=== PATIENT | male | born 1965 | race Two or more races ===

== ENCOUNTER 2021-02-22 07:45 | Inpatient (IN) | payer MEDICAID, OTHER ==
[~2021-02-22] VITALS: Ht 167.6 cm; Wt 99.8 kg
[2021-02-22] MEDS ORDERED: DEXTROSE (50%) 50ML SYRG IV PRN ×2 (08:00→15:45)
[2021-02-22] MEDS ORDERED: INSULIN LANTUS (GLARGINE) 1 /0.01ml (100units/ml) SC ONE (08:00)
[2021-02-22] MEDS ORDERED: InsuLIN R (HUMAN) 100 UNITS in SODIUM CHL 0.9% 99 ML IV SCH (08:00)
[2021-02-22] MEDS ORDERED: LORazepam 2MG/ML-1ML VIAL ONE (08:14)
[2021-02-22] MEDS ORDERED: LORazepam 2MG/ML-1ML VIAL IV ONE (08:30)
[2021-02-22] MEDS ORDERED: LORazepam 2MG/ML-1ML VIAL IM ONE (08:30)
[2021-02-22 09:17] LABS: Basophils # (auto) 0.1 10 ^3/uL (0-0.2); Basophils % (auto) 0.7 % (0.0-2.0); Eosinophils # (auto) 0.1 10 ^3/uL (0-0.8); Eosinophils % (auto) 0.9 % (0.0-7.0); Hematocrit 42.5 % (41.0-53.0); Hemoglobin 13.7 g/dL (13.5-17.5); Lymphocytes # (auto) 1.9 10 ^3/uL (0.4-5.4); Lymphocytes % (auto) 15.8 % (10.0-50.0); Mean Corpuscular Hemoglobin 31.9 pg (28.0-32.0); Mean Corpuscular Hgb Conc. 32.3 g/dL (32.0-36.0); Monocytes # (auto) 0.4 10 ^3/uL (0-1.3); Monocytes % (auto) 3.4 % (0.0-12.0); Neutrophils # (auto) 9.7 10 ^3/uL (1.6-8.6); Neutrophils % (auto) 79.2 % (37.0-80.0); Red Cell Distribution Width 12.5 % (11.8-14.3); White Blood Cell 12.2 10^3/uL (4.4-10.8)
[2021-02-22 09:35] LABS: Calcium 9.1 mg/dL (8.5-10.1); Magnesium 2.8 mg/dL (1.6-2.6); Phosphorus 3.8 mg/dL (2.5-4.90)
[2021-02-22] MEDS: SODIUM CHLORIDE 0.9% 1,000 ML IV SCH ×2 (10:12→10:15)
[2021-02-22] MEDS: ACCU-CHEK COMFORT CURVE STRIP VI SCH ×7 (10:14→23:38)
[2021-02-22] MEDS ORDERED: PIPERACILLIN-TAZOB 3.375GM 100 ML IV ONE (10:15)
[2021-02-22 10:30] LABS: Urine Bacteria NONE SEEN /hpf (None Seen); Urine Blood 2+ /uL (Negative); Urine Specific Gravity 1.023 (1.001-1.035); Urine WBC 1 /hpf (0 - 3)
[2021-02-22] MEDS ORDERED: MORPHINE SULFATE INJECTION 2 MG/ML SYRG IV PRN (11:30)
[2021-02-22] MEDS ORDERED: NITROGLYCERIN 0.4 MG SL TAB SL PRN (11:30)
[2021-02-22] MEDS ORDERED: LORazepam 2MG/ML-1ML VIAL IV PRN (11:30)
[2021-02-22] MEDS ORDERED: SODIUM CHLORIDE 0.9% 1,000 ML IV SCH ×2 (12:00→14:00)
[2021-02-22 12:29] LABS: Amphetamine Screen, Urine NEGATIVE (NEGATIVE); Barbiturate Scree,Urine NEGATIVE (NEGATIVE); Benzodiazephine Screen, Urine NEGATIVE (NEGATIVE); Cannabinoid Screen, Urine NEGATIVE (NEGATIVE); Cocaine Screen, Urine NEGATIVE (NEGATIVE); Opiate Scree,Urine NEGATIVE (NEGATIVE); Phencyclidine Screen, Urine NEGATIVE (NEGATIVE)
[2021-02-22] MEDS: InsuLIN REG 1unit/0.01ml Soln (100units/ml) SC SCH ×3 (16:00→23:37)
[2021-02-22] MEDS ORDERED: chlordiazePOXIDE HCL 25 MG CAP PO PRN (18:45)
[2021-02-22 18:54] LABS: BUN/Creatinine Ratio 14.4; Calcium 8.3 mg/dL (8.5-10.1)
[2021-02-22] MEDS: FOLIC ACID 1 MG, MULTIPLE VITAMIN 10 ML, THIAMINE INJ 100 MG in SODIUM CHLORIDE 0.9% 1,... INJ SCH (20:22)
[2021-02-22 22:00] VITALS: BP 190/90
[2021-02-22] MEDS ORDERED: hydrALAZINE HCL 20 MG/ML VL IV ONE (22:45)
[2021-02-23 00:22] VITALS: BP 195/97
[2021-02-23] MEDS ORDERED: SIMV-8 PO (02:26)
[2021-02-23] MEDS ORDERED: GLIP10TA9 PO (02:26)
[2021-02-23] MEDS ORDERED: METF-372 PO (02:26)
[2021-02-23] MEDS ORDERED: HYDR12.56 PO (02:26)
[2021-02-23] MEDS ORDERED: ALOG1TAB2 PO (02:26)
[2021-02-23] MEDS ORDERED: LISI-716 PO (02:26)
[2021-02-23 05:00] VITALS: BP 129/64
[2021-02-23] MEDS: ACCU-CHEK COMFORT CURVE STRIP VI SCH ×5 (05:21→20:09)
[2021-02-23] MEDS: InsuLIN REG 1unit/0.01ml Soln (100units/ml) SC SCH ×6 (05:33→21:15)
[2021-02-23 08:33] LABS: Basophils # (auto) 0.1 10 ^3/uL (0-0.2); Basophils % (auto) 0.6 % (0.0-2.0); Eosinophils # (auto) 0.1 10 ^3/uL (0-0.8); Eosinophils % (auto) 0.6 % (0.0-7.0); Hematocrit 39.5 % (41.0-53.0); Hemoglobin 13.8 g/dL (13.5-17.5); Lymphocytes # (auto) 1.7 10 ^3/uL (0.4-5.4); Lymphocytes % (auto) 16.6 % (10.0-50.0); Mean Corpuscular Hemoglobin 33.3 pg (28.0-32.0); Mean Corpuscular Volume 95.3 fL (80.0-100.0); Monocytes # (auto) 0.7 10 ^3/uL (0-1.3); Monocytes % (auto) 7.2 % (0.0-12.0); Neutrophils # (auto) 7.4 10 ^3/uL (1.6-8.6); Nucleated Red Blood Cells % 0.1 %; Red Blood Cells 4.14 10^6/uL (4.5-5.90); Red Cell Distribution Width 12.5 % (11.8-14.3); White Blood Cell 9.9 10^3/uL (4.4-10.8)
[2021-02-23 08:48] LABS: Albumin 2.6 g/dL (3.4-5.0); Calcium 8.2 mg/dL (8.5-10.1); Potassium 3.5 mmol/L (3.5-5.1)
[2021-02-23 08:54] LABS: Bilirubin, Total 0.7 mg/dL (0.2-1.0); Magnesium 2.8 mg/dL (1.6-2.6); Phosphorus 2.3 mg/dL (2.5-4.90); Total Protein 6.2 g/dL (6.4-8.2)
[2021-02-23] MEDS ORDERED: INSULIN LANTUS (GLARGINE) 1 /0.01ml (100units/ml) SC SCH (10:00)
[2021-02-23 13:00] VITALS: BP 146/80
[2021-02-23] MEDS: SODIUM CHLORIDE 0.9% 1,000 ML IV SCH (13:04)
[2021-02-23] MEDS: FOLIC ACID 1 MG, MULTIPLE VITAMIN 10 ML, THIAMINE INJ 100 MG in SODIUM CHLORIDE 0.9% 1,... INJ SCH (13:07)
[2021-02-23] MEDS: cloNIDine HCL 0.1 MG TAB PO PRN ×2 (16:21→21:41)
[2021-02-23 16:39] VITALS: BP 180/101
[2021-02-23 17:21] VITALS: BP 150/95
[2021-02-23 22:00] VITALS: BP 197/89
[2021-02-24 05:00] VITALS: BP 150/92
[2021-02-24] MEDS: ACCU-CHEK COMFORT CURVE STRIP VI SCH ×4 (05:29→12:13)
[2021-02-24] MEDS: InsuLIN REG 1unit/0.01ml Soln (100units/ml) SC SCH ×4 (05:31→12:14)
[2021-02-24] MEDS: SODIUM CHLORIDE 0.9% 1,000 ML IV SCH ×2 (05:32→13:40)
[2021-02-24 07:12] LABS: Basophils # (auto) 0.1 10 ^3/uL (0-0.2); Basophils % (auto) 1.1 % (0.0-2.0); Eosinophils # (auto) 0.2 10 ^3/uL (0-0.8); Eosinophils % (auto) 3.4 % (0.0-7.0); Hematocrit 39.4 % (41.0-53.0); Hemoglobin 13.1 g/dL (13.5-17.5); Lymphocytes # (auto) 1.9 10 ^3/uL (0.4-5.4); Lymphocytes % (auto) 28.9 % (10.0-50.0); Mean Corpuscular Hemoglobin 32.8 pg (28.0-32.0); Mean Corpuscular Hgb Conc. 33.3 g/dL (32.0-36.0); Mean Corpuscular Volume 98.6 fL (80.0-100.0); Monocytes # (auto) 0.5 10 ^3/uL (0-1.3); Monocytes % (auto) 7.3 % (0.0-12.0); Neutrophils % (auto) 59.3 % (37.0-80.0); Nucleated Red Blood Cells % 0.1 %; Red Cell Distribution Width 12.8 % (11.8-14.3); White Blood Cell 6.7 10^3/uL (4.4-10.8)
[2021-02-24 08:14] LABS: Albumin 2.2 g/dL (3.4-5.0); Calcium 7.7 mg/dL (8.5-10.1); Potassium 3.3 mmol/L (3.5-5.1)
[2021-02-24 08:18] LABS: BUN/Creatinine Ratio 13.9; Bilirubin, Total 0.9 mg/dL (0.2-1.0); Total Protein 5.6 g/dL (6.4-8.2)
[2021-02-24 09:00] VITALS: BP 160/85
[2021-02-24] MEDS ORDERED: POTASSIUM CHL 10 Meq TABLET PO ONE (10:15)
[2021-02-24] MEDS ORDERED: LISINOPRIL 10 MG TAB PO ONE (10:15)
[2021-02-24 12:59] VITALS: BP 140/82
== END 2021-02-24 14:26 | disposition home or self-care (01) | DRG 53 ==
LOC: ER 07:45 → EDBD 07:45 → ER 08:22 → OVERFLOW 11:23 → TELE-CENTR 21:20
PROVIDERS: ADMIT Nurse Practitioner Acute Care; ATTEND Internal Medicine
PROC: 02HV33Z Insertion of Infusion Device into Superior Vena Cava, Percutaneous Approach (ICD-10-PCS; principal; 2021-02-22)
DX: G40.909 Epilepsy, unspecified, not intractable, without status epilepticus (principal); N17.0 Acute kidney failure with tubular necrosis; G93.41 Metabolic encephalopathy; E11.10 Type 2 diabetes mellitus with ketoacidosis without coma; E66.9 Obesity, unspecified; N18.31 Chronic kidney disease, stage 3a; Y90.2 Blood alcohol level of 40-59 mg/100 ml; E11.22 Type 2 diabetes mellitus with diabetic chronic kidney disease; Z20.822 Contact with and (suspected) exposure to COVID-19; E78.5 Hyperlipidemia, unspecified; E11.42 Type 2 diabetes mellitus with diabetic polyneuropathy; I12.9 Hypertensive chronic kidney disease with stage 1 through stage 4 chronic kidney disease, or unspecified chronic kidney disease; F10.10 Alcohol abuse, uncomplicated; R65.10 Systemic inflammatory response syndrome (SIRS) of non-infectious origin without acute organ dysfunction; Z83.3 Family history of diabetes mellitus; Z91.14 Patient's other noncompliance with medication regimen; Z68.35 Body mass index [BMI] 35.0-35.9, adult
CPT/HCPCS: 36415; 36569; 51702; 70450; 70551; 71045; 80048; 80053; 80307; 81001; 82010; 82962; 83735; 83930; 84100; 85025; 87426; 87493; 95819; 96361; 96365; 96366; 96367; 96368; 96372; 99291; G0378; J1815; J2543; J7060

== ENCOUNTER 2024-07-18 21:46 | Inpatient (IN) | payer MEDICAID ==
[~2024-07-18] VITALS: Ht 170.2 cm; Wt 77.1 kg
[~2024-07-18 21:46] MED LIST: ALOG1TAB2 PO; GLIP10TA9 PO; HYDR12.59 PO; LISI10TA34 PO; METF-372 PO; SIMV20TA20 PO
[2024-07-18] MEDS: LORazepam 2MG/ML-1ML VIAL ONE (21:54)
--- NOTE | 2024-07-18 22:05 | ED.PDOC ---
HPI (NEURO) HPI Comments 59 year old male brought in by EMS presents to the ED with a chief complaint of seizure onset today. Per EMS, patient experienced a seizure today, family states when patient's glucose is elevated he experiences seizure. Patient has a PMHx HTN, DM, HLD and is not complaint with his medication, is not prescribed any medication for seizures. EMS states, upon arrival patient experienced second tonic clonic seizure and is currently post-ictal. Blood glucose read high two separate times. Chief Complaint: Seizure Time Seen by MD: 21:50 Primary Care Provider: MARGO Casillas Notes: Medications, Allergies Information Source: Patient, Emergency Med Personnel, Spouse Mode of Arrival: EMS Severity: Moderate Timing: Hours Duration: Since onset Seizure Quality: Tonic-clonic Seizure Location: Generalized Onset: At rest Circumstances: Spontaneous Before: Normal During: Awake Past Medical History PAST MEDICAL HISTORY: DM, High Lipids, HTN Past Medical History (Other): Seizure Family History Family History: Reviewed,noncontributory to illness Social History Smoker: Non-Smoker Alcohol: Denies ETOH Use Drugs: Denies Drug Use Lives In: Home Constitutional: denies: chills, diaphoresis, fatigue, fever, malaise, sweats, weakness, others EENTM: denies: blurred vision, double vision, ear bleeding, ear discharge, ear drainage, ear pain, ear ringing, eye pain, eye redness, hearing loss, mouth pain, mouth swelling, nasal discharge, nose bleeding, nose congestion, nose pain, photophobia, tearing, throat pain, throat swelling, voice changes, others Respiratory: denies: cough, hemoptysis, orthopnea, SOB at rest, shortness of breath, SOB with excertion, stridor, wheezing, others Cardiovascular: denies: chest pain, dizzy spells, diaphoresis, Dyspnea on exertion, edema, irregular heart beat, left arm pain, lightheadedness, palpitations, PND, syncope, others Gastrointestinal: denies: abdomen distended, abdominal pain, blood streaked bowels, constipated, diarrhea, dysphagia, difficulty swallowing, hematemesis, melena, nausea, poor appetite, poor fluid intake, rectal bleeding, rectal pain, vomiting, others Genitourinary: denies: burning, dysuria, flank pain, frequency, hematuria, incontinence, penile discharge, penile sore, pain, testicle pain, testicle swelling, urgency, others Neurological: reports: seizure; denies: dizziness, fainting, headache, left sided numbness, left sided weakness, numbness, paresthesia, pre-existing deficit, right sided numbness, right sided weakness, speech problems, tingling, tremors, weakness, others Musculoskeletal: denies: back pain, gout, joint pain, joint swelling, muscle pain, muscle stiffness, neck pain, others Integumetry: denies: bruises, change in color, change in hair/nails, dryness, laceration, lesions, lumps, rash, wounds, others Allergic/Immunocompromised: denies: Difficulty Healing, Frequent Infections, Hives, Itching, others Hematologic/Lymphatic: denies: anemia, blood clots, easy bleeding, easy bruising, swollen glands, others Endocrine: denies: excessive hunger, excessive sweating, excessive thirst, excessive urination, flushing, intolerance to cold, intolerance to heat, unexplained weight gain, unexplained weight loss, others Psychiatric: denies: anxiety, bipolar disorder, depression, hopeless, panic disorder, schizophrenia, sleepless, suicidal, others All Other Systems: Reviewed and Negative Physical Exam General Appearance: Mild Distress HEENT: PERRL/EOMI, Other (Dry mucous membranes) Neck: Full Range of Motion, Non-Tender, Normal Inspection, Supple Respiratory: Lungs Clear, No Accessory Muscle Use, No Respiratory Distress, Normal Breath Sounds Cardiovascular: No Edema, No JVD, Tachycardia Breast Exam: Deferred Gastrointestinal: Non Tender, Soft Genitalia: Deferred Pelvic: Deferred Rectal: Deferred Extremities: Normal inspection, Normal range of motion, Non-tender, No pedal edema Neurologic: Alert (Postictal), Other (Moves all extremities. Follows some commands. No gross focal deficit.) Cerebellar Function: NOT DONE Reflexes: NOT DONE Skin: Dry, Normal Color, Warm Lymphatic: NOT DONE EKG EKG : Comments Sinus rhythm, rate 63, normal intervals, normal axis, nonspecific T changes. Was a procedure done? Was a procedure done?: No Differential Diagnosis (SZ) Seizure: Psychogenic Seizure, Alcohol Withdrawl, CVA/TIA, Mass Lesion, Encephalopathy, Epilepsy-Break Through, Epilepsy-Status CVA: DKA, Electrolyte Imbalance, SAH Headache: Epidural Hemorrhage, Intracerebral Hemorrhage, Subarachnoid Hemorrhage, Subdural Hemorrhage, Meningitis X-Ray, Labs, Meds, VS Vital Signs Date Time Temp Pulse Resp B/P (MAP) Pulse Ox O2 Delivery O2 Flow Rate FiO2 07/18/24 22:02 144 20 126/80 (95) 98 Lab Test 07/19/24 01:07 07/19/24 00:35 07/19/24 00:32 07/19/24 00:24 Range/Units Troponin I High Sensitivity 132 *H </=54 ng/L POC Glucose 528 *H 590 *H 70-106 mg/dl Lactic Acid Level 7.3 *H 0.4-2.0 mmol/L Test 07/18/24 23:25 07/18/24 22:30 07/18/24 22:19 07/18/24 22:17 Range/Units Troponin I High Sensitivity 26 12 </=54 ng/L White Blood Count 5.3 4.4-10.8 10^3/uL Red Blood Count 4.04 L 4.5-5.90 10^6/uL Hemoglobin 13.3 L 13.5-17.5 g/dL Hematocrit 39.3 L 41.0-53.0 % Mean Corpuscular Volume 97.2 80.0-100.0 fL Mean Corpuscular Hemoglobin 32.8 H 28.0-32.0 pg Mean Corpuscular Hemoglobin Concent 33.7 32.0-36.0 g/dL Red Cell Distribution Width 12.0 11.8-14.3 % Platelet Count 295 140-450 10^3/uL Mean Platelet Volume 8.4 6.9-10.8 fL Neutrophils (%) (Auto) 65.2 37.0-80.0 % Lymphocytes (%) (Auto) 28.0 10.0-50.0 % Monocytes (%) (Auto) 2.7 0.0-12.0 % Eosinophils (%) (Auto) 3.1 0.0-7.0 % Basophils (%) (Auto) 1.0 0.0-2.0 % Neutrophils # (Auto) 3.5 1.6-8.6 10 ^3/uL Lymphocytes # (Auto) 1.5 0.4-5.4 10 ^3/uL Monocytes # (Auto) 0.1 0-1.3 10 ^3/uL Eosinophils # (Auto) 0.2 0-0.8 10 ^3/uL Basophils # (Auto) 0.1 0-0.2 10 ^3/uL Nucleated Red Blood Cells 0.1 % Sodium Level 126 L 136-145 mmol/L Potassium Level 5.0 3.5-5.1 mmol/L Chloride Level 92 L 98-107 mmol/L Carbon Dioxide Level 15 L 20-31 mmol/L Anion Gap 19 H 5-15 Blood Urea Nitrogen 25 H 9-23 mg/dL Creatinine 1.90 H 0.700-1.30 mg/dL Glomerular Filtration Rate Calc 40 >90 mL/min BUN/Creatinine Ratio 13.2 10.0-20.0 Serum Glucose 865 *H 74-106 mg/dL Lactic Acid Level 12.5 *H 0.4-2.0 mmol/L Calcium Level 10.2 8.7-10.4 mg/dL Total Bilirubin 0.3 0.2-1.0 mg/dL Aspartate Amino Transferase (AST) 23 13-40 U/L Alanine Aminotransferase (ALT) 28 7-40 U/L Alkaline Phosphatase 117 H 46-116 U/L B-Type Natriuretic Peptide 38.09 0-100 pg/mL Total Protein 6.3 5.7-8.2 g/dL Albumin 3.9 3.2-4.8 g/dL Beta-Hydroxybutyric Acid 0.465 H < 0.4 mmol/L POC Glucose > 600 *H 70-106 mg/dl Blood Gas Specimen Type Arterial Blood Gas Sample Site Left radial Blood Gas Patient Temperature 37.0 Arterial Blood Date Drawn [id number] Arterial Blood pH 7.262 L 7.350-7.450 Arterial Blood Partial Pressure CO2 28.8 L 35.0-48.0 mmHg Arterial Blood Partial Pressure O2 124.9 H 83.0-108.0 mmHg Arterial Blood HCO3 12.7 L 21.0-28.0 mmol/L Arterial Blood Oxygen Saturation 98.0 94.0-98.0 % Arterial Blood Base Excess -12.8 L -2.0-3.0 mmol/L Arterial Blood Oxyhemoglobin 96.9 94.0-98.0 % Arterial Blood Carboxyhemoglobin 0.6 0.5-1.5 % Arterial Blood Methemoglobin 0.5 0.0-1.5 % Krystian Test Modified Blood Gas Total Hemoglobin 14.00 13.5-17.5 g/dL Blood Gas Liter Flow 2.00 Blood Gas Modality Nasal cannula FiO2 % 28.0 Current Medications Medications (Trade) Dose Ordered Sig/Mino Route Start Time Stop Time Status Last Admin Sodium Chloride 2,000 ml @ 1,000 mls/hr Q2H ONCE IV 07/18/24 22:15 07/19/24 00:14 DC 07/18/24 22:33 Levetiracetam 100 ml @ 400 mls/hr ONCE ONCE IV 07/18/24 22:15 07/18/24 22:29 DC 07/18/24 22:13 Insulin Human Regular (InsuLIN R) 10 units ONCE ONCE IV 07/18/24 22:15 07/18/24 22:16 DC 07/18/24 22:24 Insulin Human (Reg)/Sodium Chloride 100 ml @ 0.5 mls/hr Q24H IV 07/19/24 01:15 07/19/24 01:25 Diagnostic Test (Pha) (Accu-Chek Comfort Curve T) 1 strip Q90MIN 07/19/24 01:30 07/19/24 01:34 Insulin Glargine (Lantus) 15 units ONCE ONCE SC 07/19/24 01:15 07/19/24 01:16 DC 07/19/24 01:34 PROCEDURE(s): HWOCT - HEAD WITHOUT CONTRAST REASON: seizure ORDER NUMBER(s): [id number], ACCESSION NUMBER(s): [id number] EXAM: CT HEAD WITHOUT CONTRAST INDICATION: seizure TECHNIQUE: CT of the head without intravenous contrast. Radiation Dose : 1. Head: CT Dose: CTDI volume is 64 mGy. Dose-length product is 1251 mGy*cm The dose indicators for CT are the volume Computed Tomography (CT) Dose Index (CTDIvol) and the Dose Length Product (DLP), and are measured in units of mGy and mGy-cm, respectively. These indicators are not patient dose, but values generated from the CT scanner acquisition factors. The report includes radiation exposure data for exposures received during this examination. COMPARISON: HEAD WITHOUT CONTRAST on DOS: 02/22/21 FINDINGS: There is no evidence of acute intracranial hemorrhage, extra-axial collection, mass effect, midline shift, herniation or hydrocephalus. The ventricles, sulci and cisterns are age appropriate. The choi-white differentiation is intact. Patchy periventricular and subcortical white matter hypoattenuation is nonspecific but may be related to small vessel ischemic disease. Mucosal thickening of the bilateral maxillary sinuses. The surrounding soft tissues and osseous structures are unremarkable. IMPRESSION: 1. No acute intracranial abnormality. 2. Bilateral maxillary sinusitis. Radiation optimization: All CT scans at this facility use at least one of these dose optimization techniques: automated exposure control mA and/or kV adjustment per patient size (includes targeted exams where dose is matched to clinical indication) or iterative reconstruction. RING PHYSICIAN: JAMIL ONEAL MD PROCEDURE(s): CXRP - CHEST PORTABLE REASON: seizure hyperglycemia ORDER NUMBER(s): [id number], ACCESSION NUMBER(s): [id number] CHEST RADIOGRAPH Indication: seizure hyperglycemia Technique: Single frontal view of the chest was obtained COMPARISON: CHEST PORTABLE on DOS: 02/22/21, CXRP on DOS: 02/22/21 FINDINGS: Lines and Tubes: None Lungs: Clear Pleura: No effusion. No pneumothorax. Cardiomediastinal contours: Unremarkable Bones: Unremarkable IMPRESSION: 1. No acute disease. ATED BY: MALU BREWER MD DICTATED DATE/TIME: 07/18/242231 SIGNED BY: MALU BREWER MD SIGNED DATE/TIME: 07/18/242231 X-Ray, Labs, Meds, VS Comment 59-year-old male with a history of hypertension, diabetes, dyslipidemia and seizures presenting status post seizure with hyperglycemia. Patient had another seizure while on the ambulance [facility] shortly after arrival. Vitals remarkable for heart rate 144 Exam remarkable for postictal state, tachycardia Rhythm strip independently interpreted by me: Sinus tach, rate 140, no ectopy. CT head IMPRESSION: 1. No acute intracranial abnormality. 2. Bilateral maxillary sinusitis. Chest x-ray unremarkable CBC unremarkable, metabolic panel remarkable for sodium 126, chloride 92, CO2 15, BUN 25, creatinine 1.9, anion gap 19, glucose 865, beta hydroxybutyrate 0.465, lactate 12.5, troponin 132 Patient treated with the following in the ED: Ativan 2 mg IV, 2 L 0.9 normal saline IV bolus, regular insulin 10 units IV, started on insulin drip protocol, Keppra 1 g IV, aspirin 325 mg p.o. On re-evaluation, patient is somnolent, arousable, no focal neurologic deficit and no further seizure activity. Plan is to admit the patient for glucose control, troponin trend, Neurology and Cardiology evaluation. Time of 1ST Reevaluation: 22:20 Reevaluation 1ST: Unchanged Patient Education/Counseling: Diagnosis, Treatment, Prognosis Family Education/Counseling: Diagnosis, Treatment, Prognosis Additional Information The following tests were ordered, and results were reviewed by me:EKG, TROP -x3, UA, CBC, CMP, bnp, xy chest, LA W/REFLEX, BLOOD CULTURE, CT HEAD WITHOUT CONTRAST, BETA-HYDROXYBUTYRATE, ABG W/ CO-OC I reviewed and agreed with the following test results read by other providers: CT HEAD WITHOUT CONTRAST Additional Information was gathered from interviewing the following independent historians: EMS, I discussed treatment and results with medical personnel and: patient, Departure 1 Departure Time of Disposition: 02:17 Impression: Primary Impression: DKA (diabetic ketoacidosis) Qualified Codes: E13.10 - Other specified diabetes mellitus with ketoacidosis without coma Additional Impressions: Seizure Elevated troponin Disposition: ADMITTED INPATIENT Admit to: [facility] Condition: Serious Critical Care Note Critical Care Time?: Yes (45 min-critical care time only) Critical care comment: Critical care time including multiple bedside re-evaluations, review of lab and imaging studies, and discussion of the case with the admitting provider. Patient is high risk for neurologic and/or metabolic decompensation. Stability Stability form required: No Heart Score Heart Score: Heart Score Response (Comments) Value History N/A 0 EKG N/A 0 Age N/A 0 Risk Factors N/A 0 Troponin N/A 0 Total 0 I personally scribed for JAMIL ONEAL MD ([email or web address]) on 07/18/24 at 22:05. Electronically submitted by Lizzie Olivares ([email or web address]). I personally scribed for JAMIL ONEAL MD ([email or web address]) on 07/18/24 at 22:06. Electronically submitted by Lizzie Olivares ([email or web address]). I personally scribed for JAMIL ONEAL MD ([email or web address]) on 07/18/24 at 22:07. Electronically submitted by Lizzie Olivares ([email or web address]). I personally scribed for JAMIL ONEAL MD ([facility]) on 07/18/24 at 22:15. Electronically submitted by Lizzie Olivares ([email or web address]). I personally scribed for JAMIL ONEAL MD ([facility]) on 07/18/24 at 22:37. Electronically submitted by Lizzie Olivares ([email or web address]). JAMIL ONEAL MD Jul 18, 2024 22:05
[2024-07-18] MEDS: levETIRAcetam 1000 mg/100ml 100 ML IV ONE (22:13)
[2024-07-18 22:17] VITALS: PULSE 81; RESP 21; O2SAT 99
[2024-07-18 22:23] LABS: Base Excess -12.8 mmol/L (-2.0-3.0)
[2024-07-18] MEDS: InsuLIN REG 1unit/0.01ml Soln (100units/ml) IV ONE (22:24)
[2024-07-18] MEDS: SODIUM CHLORIDE 0.9% 2,000 ML IV ONE (22:33)
--- NOTE | 2024-07-18 22:34 | DVH ---
CHEST RADIOGRAPH Indication: seizure hyperglycemia Technique: Single frontal view of the chest was obtained COMPARISON: CHEST PORTABLE on DOS: 02/22/21, CXRP on DOS: 02/22/21 FINDINGS: Lines and Tubes: None Lungs: Clear Pleura: No effusion. No pneumothorax. Cardiomediastinal contours: Unremarkable Bones: Unremarkable IMPRESSION: 1. No acute disease.
[2024-07-18 22:46] LABS: Basophils # (auto) 0.1 10 ^3/uL (0-0.2); Eosinophils # (auto) 0.2 10 ^3/uL (0-0.8); Eosinophils % (auto) 3.1 % (0.0-7.0); Hematocrit 39.3 % (41.0-53.0); Hemoglobin 13.3 g/dL (13.5-17.5); Lymphocytes # (auto) 1.5 10 ^3/uL (0.4-5.4); Mean Corpuscular Hemoglobin 32.8 pg (28.0-32.0); Mean Corpuscular Hgb Conc. 33.7 g/dL (32.0-36.0); Mean Corpuscular Volume 97.2 fL (80.0-100.0); Monocytes # (auto) 0.1 10 ^3/uL (0-1.3); Monocytes % (auto) 2.7 % (0.0-12.0); Neutrophils # (auto) 3.5 10 ^3/uL (1.6-8.6); Neutrophils % (auto) 65.2 % (37.0-80.0); Nucleated Red Blood Cells % 0.1 %; Platelet Count (auto) 295 10^3/uL (140-450); Red Blood Cells 4.04 10^6/uL (4.5-5.90); White Blood Cell 5.3 10^3/uL (4.4-10.8)
[2024-07-18 23:01] LABS: Alanine Aminotransferase 28 U/L (7-40); Albumin 3.9 g/dL (3.2-4.8); Anion Gap 19 (5-15); Aspartate Aminotransferase 23 U/L (13-40); BUN/Creatinine Ratio 13.2 (10.0-20.0); Calcium 10.2 mg/dL (8.7-10.4)
[2024-07-18 23:02] LABS: Bilirubin, Total 0.3 mg/dL (0.2-1.0); Total Protein 6.3 g/dL (5.7-8.2)
[2024-07-18 23:22] LABS: Carbon Dioxide 15 mmol/L (20-31); Chloride 92 mmol/L (98-107); Sodium 126 mmol/L (136-145)
[2024-07-18 23:24] LABS: Alkaline Phosphatase 117 U/L (46-116); Blood Urea Nitrogen 25 mg/dL (9-23); Glucose 865 mg/dL (74-106); Lactic Acid w/Reflex 12.5 mmol/L (0.4-2.0)
[2024-07-19] MEDS ORDERED: DEXTROSE (50%) 50ML SYRG IV PRN ×5 (01:15→08:00)
--- NOTE | 2024-07-19 01:17 | DVH ---
EXAM: CT HEAD WITHOUT CONTRAST INDICATION: seizure TECHNIQUE: CT of the head without intravenous contrast. Radiation Dose : 1. Head: CT Dose: CTDI volume is 64 mGy. Dose-length product is 1251 mGy*cm The dose indicators for CT are the volume Computed Tomography (CT) Dose Index (CTDIvol) and the Dose Length Product (DLP), and are measured in units of mGy and mGy-cm, respectively. These indicators are not patient dose, but values generated from the CT scanner acquisition factors. The report includes radiation exposure data for exposures received during this examination. COMPARISON: HEAD WITHOUT CONTRAST on DOS: 02/22/21 FINDINGS: There is no evidence of acute intracranial hemorrhage, extra-axial collection, mass effect, midline s hift, herniation or hydrocephalus. The ventricles, sulci and cisterns are age appropriate. The choi-white differentiation is intact. Patchy periventricular and subcortical white matter hypoattenuation is nonspecific but may be related to small vessel ischemic disease. Mucosal thickening of the bilateral maxillary sinuses. The surrounding soft tissues and osseous structures are unremarkable. IMPRESSION: 1. No acute intracranial abnormality. 2. Bilateral maxillary sinusitis. Radiation optimization: All CT scans at this facility use at least one of these dose optimization ingrid hniques: automated exposure control mA and/or kV adjustment per patient size (includes targeted exam s where dose is matched to clinical indication) or iterative reconstruction.
[2024-07-19] MEDS: INSULIN DRIP 100 UNIT/100ML 100 ML IV SCH ×3 (01:25→08:36)
[2024-07-19] MEDS: INSULIN LANTUS (GLARGINE) 1 /0.01ml (100units/ml) SC ONE ×2 (01:34→08:47)
[2024-07-19] MEDS: ACCU-CHEK COMFORT CURVE STRIP VI SCH ×4 (01:34→12:28)
[2024-07-19] MEDS: SODIUM CHLORIDE 0.9% 2,000 ML IV ONE (02:22)
--- NOTE | 2024-07-19 02:24 | ECG ---
[facility] Test Date: 2024-07-19 Test Time: 02:00:00 Pat Name: ERASTO RICO Department: ER Room: [address] [place] [address] Gender: M Drafter Assistant: ISAK : 1965 Requested By: HNADY ESPINOSA Order Number: [id number] Reading MD: Fausto Campuzano Measurements Intervals [place] Rate: 63 P: 35 NM: 173 QRS: 58 QRSD: 109 T: 25 QT: 425 QTc: 436 Interpretive Statements Sinus rhythm Probable left atrial enlargement RSR' in V1 or V2, right VCD or RVH Minimal ST elevation, anterior leads Electronically Signed On 07-19-2024 12:01:19 PST by Fausto Campuzano Please click the below link to view image of tracing.
[2024-07-19] MEDS ORDERED: SODIUM CHLORIDE 0.9% 1,000 ML IV SCH ×4 (02:30→08:30)
[2024-07-19] MEDS ORDERED: POTASSIUM CHL 20MEQ/100ML 200 ML IV PRN (02:30)
[2024-07-19] MEDS ORDERED: MORPHINE SULFATE INJ 2 MG/ml SYRG IV PRN (02:30)
[2024-07-19] MEDS ORDERED: INSULIN LANTUS (GLARGINE) 1 /0.01ml (100units/ml) SC ONE (02:30)
[2024-07-19] MEDS ORDERED: NITROGLYCERIN 0.4 MG SL TAB SL PRN (02:30)
[2024-07-19 03:06] LABS: Anion Gap 10 (5-15); Carbon Dioxide 22 mmol/L (20-31); Chloride 102 mmol/L (98-107); Potassium 4.5 mmol/L (3.5-5.1)
[2024-07-19 03:07] LABS: Calcium 9.5 mg/dL (8.7-10.4)
[2024-07-19] MEDS: ASPirin 325 MG TAB PO ONE (03:10)
[2024-07-19 03:12] LABS: BUN/Creatinine Ratio 18.7 (10.0-20.0)
[2024-07-19 03:14] LABS: Phosphorus 3.1 mg/dL (2.4-5.1)
[2024-07-19] MEDS ORDERED: LORazepam 2MG/ML-1ML VIAL IM SCH (03:15)
--- NOTE | 2024-07-19 03:23 | DVHHPRES ---
History of Present Illness Resident Creating Document: HANDY CARMEN RESIDENT Reason for Visit: Seizure History of Present Illness A 59y old male with PMHx HTN, DM Type 2, HLD came to the ED brought by ambulance due to seizure. According to the , he had a seizure at 9:00 p.m. last for about 1 minute with loss of sphincters, patient also had another seizure in the ambulance. According to the the patient has been having flu symptoms for a week. And patient is non compliant with medications. Patient had a similar episode of seizure hyperglycemia due to alcohol intoxication 3 years ago. Home medications: finerenone 10 mg, Lisinopril 10 mg, simvastatin 20 mg, Tradjenta 5 mg, metoprolol and metformin Cardiovascular: HTN, hyperipidemia Endocrine: Diabetes ALCOHOL: heavy Lives: with Family Review of Systems Constitutional: No: Fever, Chills, Sweats, Weakness, Malaise, Other Eyes: No: Pain, Vision change, Conjunctivae inflammation, Eyelid inflammation, Other, Redness ENT: No: Ear pain, Ear discharge, Nose pain, Nose discharge, Nose congestion, Mouth pain, Mouth swelling, Throat pain, Throat swelling, Other Respiratory: No: Cough, Dry, Shortness of breath, SOB with excertion, Wheezing, Hemoptysis, Pleuritic Pain, Sputum, Wheezing, Other Cardiovascular: No: Chest Pain, Palpitations, Orthopnea, Paroxysmal Noc. Dyspnea, Edema, Lt Headedness, Other Gastrointestinal: No: Nausea, Vomiting, Abdominal Pain, Diarrhea, Constipation, Melena, Hematochezia, Other Genitourinary: No Dysuria, No Frequency, No Incontinence, No Hematuria, No Retention, No Other Musculoskeletal: No: other, neck pain, shoulder pain, arm pain, back pain, hand pain, leg pain, foot pain Skin: No: Rash, Lesions, Jaundice, Bruising, Other Neurological: No: Weakness, Numbness, Incoordination, Change in speech, Confusion, Seizures, Other Allergies: Coded Allergies: NO KNOWN ALLERGIES (Unverified , 02/22/21) Medications Current Medications Medications Dose Ordered Sig/Mino Route Start Time Stop Time Status Last Admin Dose Admin Nitroglycerin 0.4 mg Q5MINP PRN SL 07/19/24 02:30 Morphine Sulfate 2 mg Q30M PRN IV 07/19/24 02:30 Sodium Chloride 1,000 ml @ 500 mls/hr Q2H IV 07/19/24 02:30 07/19/24 06:29 Sodium Chloride 1,000 ml @ 250 mls/hr Q4H IV 07/19/24 06:30 07/19/24 08:29 Sodium Chloride 1,000 ml @ 150 mls/hr Q6H40M IV 07/19/24 08:30 Potassium Chloride 200 ml @ 50 mls/hr ONCE PRN IV 07/19/24 02:30 07/20/24 00:29 Insulin Human (Reg)/Sodium Chloride 100 ml @ 0.5 mls/hr Q24H IV 07/19/24 02:30 07/19/24 03:00 6 MLS/HR Dextrose 50 ml UD PRN IV 07/19/24 02:30 Diagnostic Test (Pha) 1 strip Q90MIN 07/19/24 03:00 07/19/24 03:03 1 STRIP Insulin Glargine 15 units DAILY SC 07/20/24 10:00 Lorazepam 1 mg PRN IM 07/19/24 03:15 UNV Exam Vital Signs Vital Signs Date Time Temp Pulse Resp B/P (MAP) Pulse Ox O2 Delivery O2 Flow Rate FiO2 07/19/24 02:49 65 07/18/24 22:02 20 126/80 (95) 98 General Appearance: Other (Postictal state) HEENT: Atraumatic, PERRLA, EOMI, Mucous membr. moist/pink Respiratory: Clear to auscultation, Normal air movement Cardiovascular: Regular rate, Normal S1, Normal S2 Abdominal: Normal bowel sounds, Soft, No tenderness Extremities: No clubbing, No cyanosis, No edema Skin: No rashes, No breakdown, No significant lesion Neuro: Other (post ictal state) Psych/Mental Status: Other (post ictal state) Labs/Xrays Labs Test 07/19/24 02:59 07/19/24 02:30 07/19/24 01:07 07/19/24 00:24 Range/Units POC Glucose 431 *H 70-106 mg/dl Plasma/Serum Blood Alcohol 5.0 <10 mg/dL Troponin I High Sensitivity 132 *H </=54 ng/L Lactic Acid Level 7.3 *H 0.4-2.0 mmol/L Test 07/18/24 22:07/18/24 22:17 Range/Units White Blood Count 5.3 4.4-10.8 10^3/uL Red Blood Count 4.04 L 4.5-5.90 10^6/uL Hemoglobin 13.3 L 13.5-17.5 g/dL Hematocrit 39.3 L 41.0-53.0 % Mean Corpuscular Volume 97.2 80.0-100.0 fL Mean Corpuscular Hemoglobin 32.8 H 28.0-32.0 pg Mean Corpuscular Hemoglobin Concent 33.7 32.0-36.0 g/dL Red Cell Distribution Width 12.0 11.8-14.3 % Platelet Count 295 140-450 10^3/uL Mean Platelet Volume 8.4 6.9-10.8 fL Neutrophils (%) (Auto) 65.2 37.0-80.0 % Lymphocytes (%) (Auto) 28.0 10.0-50.0 % Monocytes (%) (Auto) 2.7 0.0-12.0 % Eosinophils (%) (Auto) 3.1 0.0-7.0 % Basophils (%) (Auto) 1.0 0.0-2.0 % Neutrophils # (Auto) 3.5 1.6-8.6 10 ^3/uL Lymphocytes # (Auto) 1.5 0.4-5.4 10 ^3/uL Monocytes # (Auto) 0.1 0-1.3 10 ^3/uL Eosinophils # (Auto) 0.2 0-0.8 10 ^3/uL Basophils # (Auto) 0.1 0-0.2 10 ^3/uL Nucleated Red Blood Cells 0.1 % Serum Osmolality 331 H 278-298 mOsm/kg Total Bilirubin 0.3 0.2-1.0 mg/dL Aspartate Amino Transferase (AST) 23 13-40 U/L Alanine Aminotransferase (ALT) 28 7-40 U/L Alkaline Phosphatase 117 H 46-116 U/L B-Type Natriuretic Peptide 38.09 0-100 pg/mL Total Protein 6.3 5.7-8.2 g/dL Albumin 3.9 3.2-4.8 g/dL Beta-Hydroxybutyric Acid 0.465 H < 0.4 mmol/L Blood Gas Specimen Type Arterial Blood Gas Sample Site Left radial Blood Gas Patient Temperature 37.0 Arterial Blood Date Drawn [id number] Arterial Blood pH 7.262 L 7.350-7.450 Arterial Blood Partial Pressure CO2 28.8 L 35.0-48.0 mmHg Arterial Blood Partial Pressure O2 124.9 H 83.0-108.0 mmHg Arterial Blood HCO3 12.7 L 21.0-28.0 mmol/L Arterial Blood Oxygen Saturation 98.0 94.0-98.0 % Arterial Blood Base Excess -12.8 L -2.0-3.0 mmol/L Arterial Blood Oxyhemoglobin 96.9 94.0-98.0 % Arterial Blood Carboxyhemoglobin 0.6 0.5-1.5 % Arterial Blood Methemoglobin 0.5 0.0-1.5 % Krystian Test Modified Blood Gas Total Hemoglobin 14.00 13.5-17.5 g/dL Blood Gas Liter Flow 2.00 Blood Gas Modality Nasal cannula FiO2 % 28.0 Assessment/Plan Assessment/Plan #Acute metabolic encephalopathy secondary to mixed HHS/DKA #Status epilepticus secondary to HHS/DKA #HHS Serum Osm 331 #DKA? #Metabolic acidosis secondary to lactic acidosis & DKA #DM type 2 ha1c 5.4 #NSTEMI type? #H/o of HTN #H/o of HLD #Non compliance #EMILIANA vasomotor mediated #Sepsis rule out #Bilateral maxillary sinusitis Head ct normal Chest x ray normal EKG sinus rhythm no ST elevation Admit Telemetry Stop Insulin drip : anion gap closed 10 Lantus 30 UI SC NS 2 lt bolus (2 lts already given): continue infusion per perotocol Hold on BP med: soft BPs Levetiracetam IV given Lorazepam PRN: seizures BMP q6H Troponins trending (last one 123) Pancultures Cardiology consult: NSTEMI Pending CK Aspirin 81 mg Case discussed with Dr Naqvi Time spent on critical care 71 min Plan discussed with: Patient, Other (rn) My Orders Orders - HANDY CARMEN RESIDENT Procedure Category Date Status Time Sodium Chloride 0.9% PHA 07/19/24 In Process 02:15 Insert Rocha Catheter JOJO 07/19/24 In Process 02:16 Admit ADMIT 07/19/24 Transmitted 02:16 Nitroglycerin PHA 07/19/24 In Process Sublingual (Ntrostat 02:30 Morphine Sulfate PHA 07/19/24 In Process Injection 02:30 Oxygen By Nasal RT 07/19/24 Transmitted Cannula 02:16 Stat Ekg For Chest JOJO 07/19/24 In Process Pain 02:16 Notify Of Changes JOJO 07/19/24 In Process From Base 02:16 Pipe Line Walker For JOJO 07/19/24 In Process 24 Hours 02:16 Emergency Dysrhythmia JOJO 07/19/24 In Process Protocol 02:16 Rhythm Strips Once JOJO 07/19/24 In Process Every Shift 02:16 Drug Screen LAB 07/19/24 Logged 02:20 Salicylate LAB 07/19/24 In Process 02:20 Sodium Chloride 0.9% PHA 07/19/24 In Process 02:30 Sodium Chloride 0.9% PHA 07/19/24 In Process 06:30 Sodium Chloride 0.9% PHA 07/19/24 In Process 08:30 Potassium Chl PHA 07/19/24 In Process 20meq/100ml 02:30 Insulin Drip 100 PHA 07/19/24 In Process Unit/100ml (Myxredlin 02:30 Dextrose 50% Syringe PHA 07/19/24 In Process 02:30 Glucose Blood PHA 07/19/24 In Process (Accu-Chek Comfort 03:00 Phosphorus LAB 07/19/24 In Process 02:27 Magnesium LAB 07/19/24 In Process 02:27 Basic Metabolic Panel LAB 07/19/24 Logged 02:27 Basic Metabolic Panel LAB 07/19/24 Logged 08:27 Basic Metabolic Panel LAB 07/19/24 Logged 14:27 Neurological JOJO 07/19/24 In Process Assessment 02:27 Vs/Hemodynamics OJJO 07/19/24 In Process 02:27 Insulin Lantus PHA 07/20/24 In Process (Glargine) (Lantus) 10:00 Hemoglobin A1c LAB 07/19/24 In Process 02:32 Basic Metabolic Panel LAB 07/19/24 In Process 02:27 Covid19 Antigen Lizet LAB 07/19/24 Logged Rapid Influenza A&B LAB 07/19/24 Logged 02:47 Urine Bacterial MARY KATE 07/19/24 Logged Culture 02:52 Troponin-I Hs LAB 07/20/24 Verified 04:00 Lipid Panel LAB 07/19/24 In Process 02:59 Thyroid Stimulating LAB 07/19/24 In Process Hormone 02:59 Echo 2d Mode Cardiac US 07/19/24 Logged DOP 03:00 Lorazepam 2mg/Ml Inj PHA 07/19/24 Pending (Ativan Inj) 03:15 Seizure Precautions ED NURSING 07/19/24 Transmitted Date of Service: Jul 19, 2024 Billing Provider: KIRK NAQVI MD Common Visit Codes: [id number] CARE 30-74 MIN HANDY CARMEN RESIDENT Jul 19, 2024 03:23 KIRK NAQVI MD Jul 20, 2024 00:22
[2024-07-19 03:32] LABS: Blood Urea Nitrogen 29 mg/dL (9-23); Sodium 134 mmol/L (136-145)
[2024-07-19 03:33] LABS: Glucose 481 mg/dL (74-106)
[2024-07-19 03:35] LABS: Urine Bacteria None Seen /hpf (None Seen)
[2024-07-19 04:11] LABS: Urine Blood TRACE /uL (Negative); Urine Clarity Clear (Clear); Urine Color Light-Yellow (Yellow); Urine Protein, UAD 2+ (Negative); Urine Specific Gravity 1.025 (1.001-1.035); Urine Squamous Epithelial Cell None Seen /hpf (<5); Urine Urobilinogen Normal (Negative); Urine WBC 2 /HPF (0-3)
[2024-07-19 04:49] LABS: Cholesterol 242 mg/dL (< 200); HDL Cholesterol 27 mg/dL (40-59); LDL Cholesterol 161 mg/dL (< 100); Triglycerides 299 mg/dL (< 150)
[2024-07-19 04:55] LABS: Barbiturate Scree,Urine Neg (NEGATIVE); Benzodiazephine Screen, Urine Pos (NEGATIVE); Cannabinoid Screen, Urine Neg (NEGATIVE); Cocaine Screen, Urine Neg (NEGATIVE); Opiate Scree,Urine Neg (NEGATIVE); Phencyclidine Screen, Urine Neg (NEGATIVE)
[2024-07-19] MEDS ORDERED: INSULIN LANTUS (GLARGINE) 1 /0.01ml (100units/ml) SC SCH ×3 (05:00→10:00)
[2024-07-19 05:06] LABS: Rapid Influenza A Negative (Negative); Rapid Influenza B Negative (Negative)
[2024-07-19 05:07] LABS: COVID19 ANTIGEN SOFIA FIA NEGATIVE (NEGATIVE)
[2024-07-19] MEDS ORDERED: ATORVASTATIN 20 MG TAB PO ONE (06:00)
[2024-07-19] MEDS ORDERED: SOD CHL 0.45% 1,000 ML IV SCH (07:15)
[2024-07-19 07:30] VITALS: O2SAT 100
[2024-07-19] MEDS ORDERED: ACCU-CHEK COMFORT CURVE STRIP VI SCH ×2 (08:00)
[2024-07-19] MEDS ORDERED: InsuLIN REG 1unit/0.01ml Soln (100units/ml) SC SCH (08:00)
[2024-07-19 08:25] LABS: Base Excess -4.6 mmol/L (-2.0-3.0)
[2024-07-19] MEDS: D5W/SOD CHL 0.45% 1,000 ML IV SCH (08:34)
[2024-07-19] MEDS: InsuLIN REG 1unit/0.01ml Soln (100units/ml) SC SCH (08:34)
[2024-07-19 08:57] LABS: Basophils # (auto) 0.1 10 ^3/uL (0-0.2); Eosinophils # (auto) 0.2 10 ^3/uL (0-0.8); Hematocrit 37.9 % (41.0-53.0); Hemoglobin 13.3 g/dL (13.5-17.5); Lymphocytes # (auto) 2.7 10 ^3/uL (0.4-5.4); Lymphocytes % (auto) 27.2 % (10.0-50.0); Mean Corpuscular Hemoglobin 32.5 pg (28.0-32.0); Mean Corpuscular Volume 93.1 fL (80.0-100.0); Monocytes # (auto) 0.6 10 ^3/uL (0-1.3); Neutrophils # (auto) 6.4 10 ^3/uL (1.6-8.6); Neutrophils % (auto) 63.8 % (37.0-80.0); Nucleated Red Blood Cells % 0.1 %; Platelet Count (auto) 288 10^3/uL (140-450); Red Blood Cells 4.07 10^6/uL (4.5-5.90); Red Cell Distribution Width 11.8 % (11.8-14.3)
[2024-07-19 09:11] LABS: Anion Gap 9 (5-15); Calcium 9.1 mg/dL (8.7-10.4); Carbon Dioxide 22 mmol/L (20-31); Chloride 104 mmol/L (98-107); Potassium 3.9 mmol/L (3.5-5.1)
[2024-07-19 09:12] LABS: Sodium 135 mmol/L (136-145)
[2024-07-19 09:16] LABS: Glucose 229 mg/dL (74-106)
[2024-07-19 09:17] LABS: BUN/Creatinine Ratio 17.6 (10.0-20.0); Blood Urea Nitrogen 23 mg/dL (9-23)
--- NOTE | 2024-07-19 09:54 | ECG ---
[facility] Test Date: 2024-07-19 Test Time: 02:49:25 Pat Name: ERASTO RICO Department: er Room: [address] [place] [address] A Gender: M Clinical Haematologist: jax : 1965 Requested By: JAMIL JOHNS Order Number: [id number] Reading MD: Fausto Campuzano Measurements Intervals [place] Rate: 65 P: 20 ND: 171 QRS: 55 QRSD: 86 T: 26 QT: 412 QTc: 429 Interpretive Statements Sinus rhythm ST elevation suggests acute pericarditis Electronically Signed On 07-19-2024 12:01:35 PST by Fausto Campuzano Please click the below link to view image of tracing.
[2024-07-19 10:10] VITALS: BP 126/67; PULSE 68; RESP 16; TEMP 98.4
[2024-07-19] MEDS: ASPirin 81 mg TAB PO SCH (10:25)
[2024-07-19 10:27] LABS: Lactic Acid w/Reflex 2.2 mmol/L (0.4-2.0)
--- NOTE | 2024-07-19 11:40 | DVHPNRES ---
Progress Note Date Seen: Jul 19, 2024 Resident Creating Document: GAYLE NORTH RESIDENT Medical Necessity Reason Pt with a Central, PICC or Fol: No Subjective Review of Systems Kal Reeves is a 59 year old male patient who presents to the ED via EMS due to altered mental status after seizure-like activity which started night of his admission and lasted for only 1 minute and posteriorly presented new seizure EN route in the ambulance, associated with incontinence and hyperglycemia. Obtained past medical history from EMR and family due to patient's clinical status, and could not obtain review of systems. Past medical history: Hypertension, diabetes type 2, dyslipidemia, 2020 seizures secondary to alcohol abuse, noncompliant Surgical history: Denies Family history: Noncontributory Social history: Lives with family in [place]. Ex alcohol abuse, has not consumed since 2019. Denies current tobacco, alcohol and other drug abuse Allergies: Denies Home medications: finerenone 10 mg, Lisinopril 10 mg, simvastatin 20 mg, Tradjenta 5 mg, metoprolol and metformin Patient seen and examined at bedside. Currently is alert and oriented in three spheres (not oriented in place). Has no new complaint. Objective vital signs Vital Sign Date Time Temp Pulse Resp B/P (MAP) Pulse Ox O2 Delivery O2 Flow Rate FiO2 07/19/24 10:10 98.4 68 16 126/67 (86) 98.4 07/19/24 10:10 Room Air* 0 21 07/19/24 09:00 97 Total Intake and Output 07/18/24 07/18/24 07/19/24 15:00 23:00 07:00 Intake Total 100 ml 4016 ml Balance 100 ml 4016 ml medications Current Medications Medications Dose Ordered Sig/Mino Route Start Time Stop Time Status Last Admin Dose Admin Lorazepam 1 mg PRN IM 07/19/24 03:15 Hold Aspirin 81 mg DAILY PO 07/19/24 10:00 07/19/24 10:25 81 MG Insulin Human Regular IQ4HR SC 07/19/24 08:00 UNV Dextrose 50 ml UD PRN IV 07/19/24 05:00 UNV Insulin Glargine 30 units DAILY SC 07/19/24 06:15 UNV Diagnostic Test (Pha) 1 strip IQ4HR 07/19/24 08:00 UNV Insulin Human Regular IQ4HR SC 07/19/24 08:00 07/19/24 11:37 4 UNITS Dextrose 50 ml UD PRN IV 07/19/24 06:30 UNV Atorvastatin Calcium 80 mg HS PO 07/19/24 22:00 Insulin Human (Reg)/Sodium Chloride 100 ml @ 0.5 mls/hr Q24H IV 07/19/24 08:00 07/19/24 08:36 2 MLS/HR Diagnostic Test (Pha) 1 strip Q90MIN 07/19/24 09:00 07/19/24 10:25 1 STRIP Dextrose 50 ml PRN PRN IV 07/19/24 08:00 Insulin Glargine 15 units DAILY SC 07/20/24 10:00 Dextrose/Sodium Chloride 1,000 ml @ 150 mls/hr Q6H40M IV 07/19/24 08:00 07/19/24 08:34 150 MLS/HR Examination Patient lying in bed, in no acute distress General: Lucid, afebrile, mucosae are moist Cardiovascular: Normal S1 and S2. No murmurs, gallops or rubs Respiratory: Normal ventilation mechanics. Clear lung sounds on auscultation Abdomen: Soft, nontender, no organomegaly, normal bowel sounds MSK/skin: Mobilizes 4 limbs. Skin is dry and warm. right 5th toe amputation. Neurological: Oriented in 3 spheres. No motor no sensitive deficits. Pupils are isocoric and reactive laboratory and microbiology Laboratory Tests 07/19/24 08:35 Test 07/19/24 08:35 Range/Units Serum Glucose 229 #H 74-106 mg/dL Problem List/Assessment/Plan Problem List/Assessment/Plan # Acute metabolic encephalopathy secondary to mixed HHS/DKA Completed head CT which ruled out acute intracranial pathology # Seizures next secondary to HHS Responded to correction of metabolic disorder. No need for Keppra Ativan p.r.n. # HHS Serum Osm 331, hyperglycemia above 800 and seizure-like activity Responded to insulin, currently without drip Patient currently on aggressive insulin sliding scale and Lantus. Started feedings. # DKA vs starvation ketosis Anion gap 19, ABG presented metabolic acidosis Responded to insulin and IV fluids, currently without drip Patient currently on aggressive insulin sliding scale and Lantus. Started feedings. Optimize electrolytes # EMILIANA vasomotor mediated Monitor Regard IV fluids # NSTEMI type II Troponin mildly elevated. (highest value 100s), EKG showed no ST alteration. Probably secondary to seizure-like activity (hypoxemia) Continued aspirin and statin treatment (patient has high-risk of coronary artery disease due to cardiovascular risk factors) # Metabolic acidosis Repeat ABG corrected metabolic acidosis with medical treatment, likely lactic acidosis from sz # Bilateral maxillary sinusitis Monitor. Patient is asymptomatic # DM type 2 - controlled (ha1c 5.4) Patient currently on aggressive insulin sliding scale # HTN # Dyslipidemia Continue with atorvastatin # Non compliance Patient says that he is compliant, but family member says that he is not compliant # History of seizure secondary to alcohol abuse Per family patient has not consumed alcohol since 2019 (when he presented seizure) Critical care time spent including discussion with nursing and family: 62 minutes Goals of care discussed with patient for over 18 minutes: Full code status Discussed plan with Dr. Emmanuel, patient, family and nurses: Patient responded to insulin drip, currently on basal insulin and aggressive insulin sliding scale, continue with IV fluids and replenish electrolytes. Downgraded the patient to telemetry. Patient has poor prognosis Plan discussed with: Patient, Son, Other (Nurses) My Orders My Orders Orders - GAYLE NORTH RESIDENT Procedure Category Date Status Time Atorvastatin (Lipitor) PHA 07/19/24 In Process 22:00 Insulin Drip 100 PHA 07/19/24 In Process Unit/100ml (Myxredlin 08:00 Glucose Blood PHA 07/19/24 In Process (Accu-Chek Comfort 09:00 Insulin Drip Protocol JOJO 07/19/24 In Process 07:54 Dextrose 50% Syringe PHA 07/19/24 In Process 08:00 Insulin Lantus PHA 07/20/24 In Process (Glargine) (Lantus) 10:00 Abg W/ Co-Ox RT 07/19/24 Logged 07:54 D5w/Sod Chl 0.45% PHA 07/19/24 In Process (D5w 1/2ns) 08:00 Transfer Orders XFER 07/19/24 Transmitted 11:37 Date of Service: Jul 19, 2024 Billing Provider: MONA EMMANUEL MD Common Visit Codes: [id number] CARE 30-74 MIN GAYLE NORTH Jul 19, 2024 11:40 MONA EMMANUEL MD Jul 19, 2024 21:22
[2024-07-19 11:47] VITALS: BP 132/73; RESP 18; TEMP 97.3
--- NOTE | 2024-07-19 13:10 | DVHINCON2 ---
Date of service: Jul 19, 2024 History of Present Illness 59 yo M with hx of HTN admitted for seizures and AMS. i am consulted for eval. Family History: Diabetes mellitus G8 MOTHER G8 FATHER Allergies: Coded Allergies: NO KNOWN ALLERGIES (Unverified , 02/22/21) Home Meds Active Scripts Insulin Glargine (Lantus) 100 Unit/Ml Inj, 15 UNITS SC DAILY for 30 Days, #10 INJ Prov:CANGAYLE RESIDENT 07/20/24 Atorvastatin Calcium (ATORVASTATIN CALCIUM) 20 Mg Tab, 80 MG PO HS for 30 Days, #120 TAB Prov:GENAROABIMAELGAYLE RESIDENT 07/20/24 Aspirin (Aspirin Low Dose) 81 Mg Tab, 81 MG PO DAILY for 30 Days, #30 TAB Prov:GENAROABIMAELGAYLE RESIDENT 07/20/24 Reported Medications Hydrochlorothiazide (Hydrochlorothiazide) 12.5 Mg Cap, 1 CAP PO DAILYPRN 02/23/21 Alogliptin Benzoate (Alogliptin) 25 Mg Tab, 1 TAB PO DAILYPRN 02/23/21 Metformin Hydrochloride (Metformin Hcl) 1,000 Mg Tab, 1 TAB PO BID 02/23/21 Lisinopril (Lisinopril) 10 Mg Tab, 1 TAB PO DAILYPRN 02/23/21 Glipizide (Glipizide) 10 Mg Tab, 1 TAB PO BID 02/23/21 Discontinued Reported Medications Simvastatin (Simvastatin) 20 Mg Tab, 1 TAB PO 02/23/21 Current Medications Current Medications Medications (Trade) Dose Ordered Sig/Mino Route PRN Reason Start Time Stop Time Status Last Admin Insulin Human (Reg)/Sodium Chloride 100 ml @ 0.5 mls/hr Q24H IV 07/19/24 01:15 07/19/24 02:41 DC 07/19/24 01:25 Diagnostic Test (Pha) (Accu-Chek Comfort Curve T) 1 strip Q90MIN 07/19/24 01:30 07/19/24 02:41 DC 07/19/24 01:34 Dextrose 50 ml PRN PRN IV BG LESS Than 70 AND CALL 07/19/24 01:15 07/19/24 02:41 DC Insulin Glargine (Lantus) 15 units DAILY SC 07/20/24 10:00 07/19/24 02:41 DC Nitroglycerin (Ntrostat Sublingual) 0.4 mg Q5MINP PRN SL FOR CHEST PAIN 07/19/24 02:30 07/19/24 07:12 DC Morphine Sulfate 2 mg Q30M PRN IV FOR CHEST PAIN 07/19/24 02:30 07/19/24 07:12 DC Sodium Chloride 1,000 ml @ 500 mls/hr Q2H IV 07/19/24 02:30 07/19/24 06:11 DC Sodium Chloride 1,000 ml @ 250 mls/hr Q4H IV 07/19/24 06:30 07/19/24 06:11 DC Sodium Chloride 1,000 ml @ 150 mls/hr Q6H40M IV 07/19/24 08:30 07/19/24 06:11 DC Potassium Chloride 200 ml @ 50 mls/hr ONCE PRN IV DKA K+ PROTOCOL 07/19/24 02:30 07/19/24 04:28 DC Insulin Human (Reg)/Sodium Chloride 100 ml @ 0.5 mls/hr Q24H IV 07/19/24 02:30 07/19/24 04:22 DC 07/19/24 03:00 Dextrose 50 ml UD PRN IV SEE CURRENT ALGORITHM or SCALE 07/19/24 02:30 07/19/24 08:31 DC Diagnostic Test (Pha) (Accu-Chek Comfort Curve T) 1 strip Q90MIN 07/19/24 03:00 07/19/24 06:18 DC 07/19/24 04:37 Insulin Glargine (Lantus) 15 units DAILY SC 07/20/24 10:00 07/19/24 04:28 DC Lorazepam (Ativan Inj) 1 mg PRN IM 07/19/24 03:15 Hold Aspirin 81 mg DAILY PO 07/19/24 10:00 07/19/24 10:25 Insulin Glargine (Lantus) 30 units DAILY SC 07/19/24 10:00 07/19/24 04:51 DC Insulin Glargine (Lantus) 30 units DAILY@1000 SC 07/19/24 05:00 07/19/24 06:12 DC Diagnostic Test (Pha) (Accu-Chek Comfort Curve T) 1 strip IQ4HR 07/19/24 08:00 07/19/24 08:31 DC Insulin Human Regular (InsuLIN R) IQ4HR SC 07/19/24 08:00 UNV Dextrose 50 ml UD PRN IV Blood Sugar LESS THAN 60 07/19/24 05:00 UNV Insulin Glargine (Lantus) 30 units DAILY SC 07/19/24 06:15 UNV Sodium Chloride 1,000 ml @ 150 mls/hr Q6H40M IV 07/19/24 06:15 07/19/24 07:12 DC Diagnostic Test (Pha) (Accu-Chek Comfort Curve T) 1 strip IQ4HR 07/19/24 08:00 UNV Insulin Human Regular (InsuLIN R) IQ4HR SC 07/19/24 08:00 07/19/24 11:37 Dextrose 50 ml UD PRN IV Blood Sugar LESS THAN 60 07/19/24 06:30 UNV Sodium Chloride 1,000 ml @ 125 mls/hr Q8H IV 07/19/24 07:15 07/19/24 08:01 DC Atorvastatin Calcium (Lipitor) 80 mg HS PO 07/19/24 22:00 Insulin Human (Reg)/Sodium Chloride 100 ml @ 0.5 mls/hr Q24H IV 07/19/24 08:00 07/19/24 11:39 DC 07/19/24 08:36 Diagnostic Test (Pha) (Accu-Chek Comfort Curve T) 1 strip Q90MIN 07/19/24 09:00 07/19/24 11:48 DC 07/19/24 11:47 Dextrose 50 ml PRN PRN IV BG LESS Than 70 AND CALL MD 07/19/24 08:00 Insulin Glargine (Lantus) 15 units DAILY SC 07/20/24 10:00 Dextrose/Sodium Chloride 1,000 ml @ 150 mls/hr Q6H40M IV 07/19/24 08:00 07/19/24 08:34 Diagnostic Test (Pha) (Accu-Chek Comfort Curve T) 1 strip IQ4HR 07/19/24 12:00 07/19/24 12:28 Vital Signs Vital Signs Date Time Temp Pulse Resp B/P (MAP) Pulse Ox O2 Delivery O2 Flow Rate FiO2 07/19/24 13:00 97.5 62 10 118/62 (80) 98 97.5 07/19/24 10:10 Room Air* 0 21 Labs/Diagnostic Data Labs Test 07/19/24 11:33 07/19/24 10:45 07/19/24 08:35 07/19/24 08:21 Range/Units POC Glucose 186 H 70-106 mg/dl Lactic Acid Level 2.3 *H 0.4-2.0 mmol/L White Blood Count 10.0 # 4.4-10.8 10^3/uL Red Blood Count 4.07 L 4.5-5.90 10^6/uL Hemoglobin 13.3 L 13.5-17.5 g/dL Hematocrit 37.9 L 41.0-53.0 % Mean Corpuscular Volume 93.1 # 80.0-100.0 fL Mean Corpuscular Hemoglobin 32.5 H 28.0-32.0 pg Mean Corpuscular Hemoglobin Concent 35.0 32.0-36.0 g/dL Red Cell Distribution Width 11.8 11.8-14.3 % Platelet Count 288 140-450 10^3/uL Mean Platelet Volume 8.1 6.9-10.8 fL Neutrophils (%) (Auto) 63.8 37.0-80.0 % Lymphocytes (%) (Auto) 27.2 10.0-50.0 % Monocytes (%) (Auto) 6.0 0.0-12.0 % Eosinophils (%) (Auto) 2.0 0.0-7.0 % Basophils (%) (Auto) 1.0 0.0-2.0 % Neutrophils # (Auto) 6.4 1.6-8.6 10 ^3/uL Lymphocytes # (Auto) 2.7 0.4-5.4 10 ^3/uL Monocytes # (Auto) 0.6 0-1.3 10 ^3/uL Eosinophils # (Auto) 0.2 0-0.8 10 ^3/uL Basophils # (Auto) 0.1 0-0.2 10 ^3/uL Nucleated Red Blood Cells 0.1 % Sodium Level 135 L 136-145 mmol/L Potassium Level 3.9 3.5-5.1 mmol/L Chloride Level 104 98-107 mmol/L Carbon Dioxide Level 22 20-31 mmol/L Anion Gap 9 5-15 Blood Urea Nitrogen 23 9-23 mg/dL Creatinine 1.31 H 0.700-1.30 mg/dL Glomerular Filtration Rate Calc 62 >90 mL/min BUN/Creatinine Ratio 17.6 10.0-20.0 Serum Glucose 229 #H 74-106 mg/dL Calcium Level 9.1 8.7-10.4 mg/dL Blood Gas Specimen Type Arterial Blood Gas Sample Site Right brachial Blood Gas Patient Temperature 37.0 Arterial Blood Date Drawn [id number] Arterial Blood pH 7.384 7.350-7.450 Arterial Blood Partial Pressure CO2 33.7 L 35.0-48.0 mmHg Arterial Blood Partial Pressure O2 83.1 83.0-108.0 mmHg Arterial Blood HCO3 19.7 L 21.0-28.0 mmol/L Arterial Blood Oxygen Saturation 95.9 94.0-98.0 % Arterial Blood Base Excess -4.6 L -2.0-3.0 mmol/L Arterial Blood Oxyhemoglobin 94.7 94.0-98.0 % Arterial Blood Carboxyhemoglobin 0.7 0.5-1.5 % Arterial Blood Methemoglobin 0.5 0.0-1.5 % Krystian Test Yes Blood Gas Total Hemoglobin 12.80 L 13.5-17.5 g/dL Blood Gas Modality Room air FiO2 % 21.0 Test 07/19/24 03:46 07/19/24 03:29 07/19/24 02:30 07/19/24 01:07 Range/Units Influenza Type A Antigen Negative Negative Influenza Type B Antigen Negative Negative SARS-CoV-2 Antigen (Rapid) Negative NEGATIVE Urine Color Light-yellow Yellow Urine Clarity Clear Clear Urine pH 6.0 5.0-9.0 Urine Specific [place] 1.025 1.001-1.035 Urine Protein 2+ H Negative Urine Ketones Negative Negative Urine Blood Trace H Negative /uL Urine Nitrite Negative Negative Urine Bilirubin Negative Negative Urine Urobilinogen Normal Negative mg/dL Urine Leukocyte Esterase Negative Negative /uL Urine RBC <1 0 - 3 /hpf Urine Microscopic WBC 2 0-3 /HPF Urine Squamous Epithelial Cells None seen <5 /hpf Urine Bacteria None seen None Seen /hpf Urine Glucose 4+ H Normal mg/dL Urine Opiates Screen Neg NEGATIVE Urine Fentanyl Screen Neg NEGATIVE Urine Barbiturates Screen Neg NEGATIVE Urine Phencyclidine Screen Neg NEGATIVE Urine Benzodiazepines Screen Pos NEGATIVE Urine Cocaine Screen Neg NEGATIVE Urine Cannabinoids Screen Neg NEGATIVE Phosphorus Level 3.1 2.4-5.1 mg/dL Magnesium Level 2.0 1.6-2.6 mg/dL Creatine Kinase 148 46-171 U/L Triglycerides Level 299 H < 150 mg/dL Cholesterol Level 242 H < 200 mg/dL LDL Cholesterol 161 H < 100 mg/dL HDL Cholesterol 27 L 40-59 mg/dL Thyroid Stimulating Hormone (TSH) 0.97 0.55-4.78 uIU/mL Salicylates Level < 3.0 -30 mg/dL Plasma/Serum Blood Alcohol 5.0 <10 mg/dL Troponin I High Sensitivity 132 *H </=54 ng/L Test 07/18/24 22:30 07/18/24 22:17 Range/Units Hemoglobin A1c 5.4 <5.7 % A1C Serum Osmolality 331 H 278-298 mOsm/kg Total Bilirubin 0.3 0.2-1.0 mg/dL Aspartate Amino Transferase (AST) 23 13-40 U/L Alanine Aminotransferase (ALT) 28 7-40 U/L Alkaline Phosphatase 117 H 46-116 U/L B-Type Natriuretic Peptide 38.09 0-100 pg/mL Total Protein 6.3 5.7-8.2 g/dL Albumin 3.9 3.2-4.8 g/dL Beta-Hydroxybutyric Acid 0.465 H < 0.4 mmol/L Blood Gas Liter Flow 2.00 NOEL MARRERO MD Jul 19, 2024 13:10
[2024-07-19 14:04] LABS: Amphetamine Screen, Urine Neg (NEGATIVE)
[2024-07-19 15:05] LABS: Sodium 137 mmol/L (136-145)
[2024-07-19 15:06] LABS: Anion Gap 8 (5-15); Calcium 8.9 mg/dL (8.7-10.4); Carbon Dioxide 22 mmol/L (20-31)
[2024-07-19 15:12] LABS: Blood Urea Nitrogen 23 mg/dL (9-23); Chloride 107 mmol/L (98-107); Glucose 127 mg/dL (74-106); Potassium 3.4 mmol/L (3.5-5.1)
[2024-07-19 18:43] VITALS: O2SAT 95
[2024-07-19] MEDS: POTASSIUM CHL 20MEQ/100ML 100 ML IV SCH (19:00)
[2024-07-19 19:22] LABS: Sodium 137 mmol/L (136-145)
[2024-07-19 19:23] LABS: Anion Gap 8 (5-15)
[2024-07-19 19:28] LABS: BUN/Creatinine Ratio 17.4 (10.0-20.0); Blood Urea Nitrogen 20 mg/dL (9-23)
[2024-07-19 19:36] LABS: Calcium 8.6 mg/dL (8.7-10.4); Carbon Dioxide 19 mmol/L (20-31); Chloride 110 mmol/L (98-107); Glucose 170 mg/dL (74-106); Potassium 3.4 mmol/L (3.5-5.1)
[2024-07-19 20:00] VITALS: PULSE 67; O2SAT 95
[2024-07-19 21:00] VITALS: BP 121/71; PULSE 65; RESP 18; TEMP 97.7; O2SAT 97
[2024-07-19] MEDS: ATORVASTATIN 20 MG TAB PO SCH (21:32)
[2024-07-20 01:00] VITALS: BP 127/65; PULSE 63; RESP 18; TEMP 97.7; O2SAT 97
[2024-07-20 05:00] VITALS: BP 143/67; PULSE 76; RESP 17; TEMP 97.6; O2SAT 98
[2024-07-20] MEDS: PANTOPRAZOLE 40 MG/10 ML VIAL INJ IV ONE (06:43)
[2024-07-20] MEDS: POTASSIUM EFFERVESENT TAB 25 MEQ PO ONE (06:44)
[2024-07-20 07:20] LABS: Alanine Aminotransferase 19 U/L (7-40); Alkaline Phosphatase 86 U/L (46-116); Anion Gap 8 (5-15); Aspartate Aminotransferase 20 U/L (13-40); BUN/Creatinine Ratio 20.6 (10.0-20.0); Blood Urea Nitrogen 22 mg/dL (9-23); Carbon Dioxide 21 mmol/L (20-31); Magnesium 1.8 mg/dL (1.6-2.6); Sodium 137 mmol/L (136-145)
[2024-07-20 07:21] LABS: Bilirubin, Total 0.4 mg/dL (0.2-1.0); Calcium 8.7 mg/dL (8.7-10.4); Chloride 108 mmol/L (98-107); Glucose 149 mg/dL (74-106); Phosphorus 2.8 mg/dL (2.4-5.1); Total Protein 4.7 g/dL (5.7-8.2)
[2024-07-20 08:00] VITALS: PULSE 66
[2024-07-20 08:04] LABS: Basophils # (auto) 0.1 10 ^3/uL (0-0.2); Basophils % (auto) 1.1 % (0.0-2.0); Eosinophils # (auto) 0.2 10 ^3/uL (0-0.8); Eosinophils % (auto) 2.9 % (0.0-7.0); Hematocrit 36.8 % (41.0-53.0); Hemoglobin 12.5 g/dL (13.5-17.5); Lymphocytes # (auto) 2.4 10 ^3/uL (0.4-5.4); Mean Corpuscular Hemoglobin 31.6 pg (28.0-32.0); Mean Corpuscular Hgb Conc. 33.9 g/dL (32.0-36.0); Mean Corpuscular Volume 93.2 fL (80.0-100.0); Monocytes # (auto) 0.3 10 ^3/uL (0-1.3); Monocytes % (auto) 4.6 % (0.0-12.0); Neutrophils # (auto) 4.3 10 ^3/uL (1.6-8.6); Neutrophils % (auto) 58.4 % (37.0-80.0); Nucleated Red Blood Cells % 0.2 %; Platelet Count (auto) 304 10^3/uL (140-450); Red Blood Cells 3.95 10^6/uL (4.5-5.90); White Blood Cell 7.3 10^3/uL (4.4-10.8)
[2024-07-20 08:11] VITALS: O2SAT 95
[2024-07-20] MEDS: INSULIN LANTUS (GLARGINE) 1 /0.01ml (100units/ml) SC SCH (09:22)
[2024-07-20 09:43] VITALS: BP 145/86; PULSE 72; RESP 16; TEMP 97.9; O2SAT 97
[2024-07-20] MEDS ORDERED: INSULIN LANTUS (GLARGINE) 1 /0.01ml (100units/ml) SC SCH ×2 (10:00)
[2024-07-20] MEDS: ENOXAPARIN SOD 40 MG/0.4 ML SYRINGE SC SCH (10:00)
[2024-07-20 13:00] VITALS: BP 146/89; PULSE 73; RESP 16; TEMP 98; O2SAT 98
[2024-07-20] MEDS ORDERED: ASPI-325 PO (13:43)
[2024-07-20] MEDS ORDERED: INSLANTI SC (13:43)
[2024-07-20] MEDS ORDERED: ATOR20TA50 PO (13:43)
--- NOTE | 2024-07-20 13:54 | DVHDSRES ---
Discharge Summary Date of Admission Resident Creating Document: GAYLE NORTH RESIDENT Jul 19, 2024 at 02:16 Date of Discharge: Jul 20, 2024 Labs/Diagnostic Data: Laboratory Results Test 07/20/24 11:54 07/20/24 06:32 07/19/24 08:21 07/19/24 03:46 POC Glucose 246 mg/dl (70-106) White Blood Count 7.3 10^3/uL (4.4-10.8) Red Blood Count 3.95 10^6/uL (4.5-5.90) Hemoglobin 12.5 g/dL (13.5-17.5) Hematocrit 36.8 % (41.0-53.0) Mean Corpuscular Volume 93.2 fL (80.0-100.0) Mean Corpuscular Hemoglobin 31.6 pg (28.0-32.0) Mean Corpuscular Hemoglobin Concent 33.9 g/dL (32.0-36.0) Red Cell Distribution Width 12.0 % (11.8-14.3) Platelet Count 304 10^3/uL (140-450) Mean Platelet Volume 8.0 fL (6.9-10.8) Neutrophils (%) (Auto) 58.4 % (37.0-80.0) Lymphocytes (%) (Auto) 33.0 % (10.0-50.0) Monocytes (%) (Auto) 4.6 % (0.0-12.0) Eosinophils (%) (Auto) 2.9 % (0.0-7.0) Basophils (%) (Auto) 1.1 % (0.0-2.0) Neutrophils # (Auto) 4.3 10 ^3/uL (1.6-8.6) Lymphocytes # (Auto) 2.4 10 ^3/uL (0.4-5.4) Monocytes # (Auto) 0.3 10 ^3/uL (0-1.3) Eosinophils # (Auto) 0.2 10 ^3/uL (0-0.8) Basophils # (Auto) 0.1 10 ^3/uL (0-0.2) Nucleated Red Blood Cells 0.2 % Sodium Level 137 mmol/L (136-145) Potassium Level 4.0 mmol/L (3.5-5.1) Chloride Level 108 mmol/L (98-107) Carbon Dioxide Level 21 mmol/L (20-31) Anion Gap 8 (5-15) Blood Urea Nitrogen 22 mg/dL (9-23) Creatinine 1.07 mg/dL (0.700-1.30) Glomerular Filtration Rate Calc 79 mL/min (>90) BUN/Creatinine Ratio 20.6 (10.0-20.0) Serum Glucose 149 mg/dL (74-106) Serum Osmolality 287 mOsm/kg (278-298) Lactic Acid Level 0.9 mmol/L (0.4-2.0) Calcium Level 8.7 mg/dL (8.7-10.4) Phosphorus Level 2.8 mg/dL (2.4-5.1) Magnesium Level 1.8 mg/dL (1.6-2.6) Total Bilirubin 0.4 mg/dL (0.2-1.0) Aspartate Amino Transferase (AST) 20 U/L (13-40) Alanine Aminotransferase (ALT) 19 U/L (7-40) Alkaline Phosphatase 86 U/L (46-116) Troponin I High Sensitivity 136 ng/L (</=54) Total Protein 4.7 g/dL (5.7-8.2) Albumin 3.0 g/dL (3.2-4.8) Blood Gas Specimen Type Arterial Blood Gas Sample Site Right brachial Blood Gas Patient Temperature 37.0 Arterial Blood Date Drawn [id number] Arterial Blood pH 7.384 (7.350-7.450) Arterial Blood Partial Pressure CO2 33.7 mmHg (35.0-48.0) Arterial Blood Partial Pressure O2 83.1 mmHg (83.0-108.0) Arterial Blood HCO3 19.7 mmol/L (21.0-28.0) Arterial Blood Oxygen Saturation 95.9 % (94.0-98.0) Arterial Blood Base Excess -4.6 mmol/L (-2.0-3.0) Arterial Blood Oxyhemoglobin 94.7 % (94.0-98.0) Arterial Blood Carboxyhemoglobin 0.7 % (0.5-1.5) Arterial Blood Methemoglobin 0.5 % (0.0-1.5) Krystian Test Yes Blood Gas Total Hemoglobin 12.80 g/dL (13.5-17.5) Blood Gas Modality Room air FiO2 % 21.0 Influenza Type A Antigen Negative (Negative) Influenza Type B Antigen Negative (Negative) SARS-CoV-2 Antigen (Rapid) Negative (NEGATIVE) Test 07/19/24 03:29 07/19/24 02:30 07/18/24 22:30 07/18/24 22:17 Urine Color Light-yellow (Yellow) Urine Clarity Clear (Clear) Urine pH 6.0 (5.0-9.0) Urine Specific [place] 1.025 (1.001-1.035) Urine Protein 2+ (Negative) Urine Ketones Negative (Negative) Urine Blood Trace /uL (Negative) Urine Nitrite Negative (Negative) Urine Bilirubin Negative (Negative) Urine Urobilinogen Normal mg/dL (Negative) Urine Leukocyte Esterase Negative /uL (Negative) Urine RBC <1 /hpf (0 - 3) Urine Microscopic WBC 2 /HPF (0-3) Urine Squamous Epithelial Cells None seen /hpf (<5) Urine Bacteria None seen /hpf (None Seen) Urine Glucose 4+ mg/dL (Normal) Urine Opiates Screen Neg (NEGATIVE) Urine Fentanyl Screen Neg (NEGATIVE) Urine Barbiturates Screen Neg (NEGATIVE) Urine Phencyclidine Screen Neg (NEGATIVE) Urine Amphetamines Screen Neg (NEGATIVE) Urine Benzodiazepines Screen Pos (NEGATIVE) Urine Cocaine Screen Neg (NEGATIVE) Urine Cannabinoids Screen Neg (NEGATIVE) Creatine Kinase 148 U/L (46-171) Triglycerides Level 299 mg/dL (< 150) Cholesterol Level 242 mg/dL (< 200) LDL Cholesterol 161 mg/dL (< 100) HDL Cholesterol 27 mg/dL (40-59) Thyroid Stimulating Hormone (TSH) 0.97 uIU/mL (0.55-4.78) Salicylates Level < 3.0 mg/dL (-30) Plasma/Serum Blood Alcohol 5.0 mg/dL (<10) Hemoglobin A1c 5.4 % A1C (<5.7) B-Type Natriuretic Peptide 38.09 pg/mL (0-100) Beta-Hydroxybutyric Acid 0.465 mmol/L (< 0.4) Blood Gas Liter Flow 2.00 Other Laboratory Tests 07/20/24 06:32 Brief Hx & Hospital Course: Kal Reeves is a 59 year old male patient who presents to the ED via EMS due to altered mental status after seizure-like activity which started night of his admission and lasted for only 1 minute and posteriorly presented new seizure EN route in the ambulance, associated with incontinence and hyperglycemia. Obtained past medical history from EMR and family due to patient's clinical status, and could not obtain review of systems. Past medical history: Hypertension, diabetes type 2, dyslipidemia, 2020 seizures secondary to alcohol abuse, noncompliant Surgical history: Denies Family history: Noncontributory Social history: Lives with family in [place]. Ex alcohol abuse, has not consumed since 2019. Denies current tobacco, alcohol and other drug abuse Allergies: Denies Home medications: finerenone 10 mg, Lisinopril 10 mg, simvastatin 20 mg, Tradjenta 5 mg, metoprolol and metformin Hospital course: Acute metabolic encephalopathy with breakthrough seizures secondary to mixed HS S/DKA associated with EMILIANA and NSTEMI type 2, requiring on admission IV insulin drip, IV fluids, IV electrolyte replenishment and IV benzodiazepines. Completed head CT which ruled out acute intracranial pathology. Patient hemodynamically stable, asymptomatic, in condition to be discharged home. Was granted under optimal medical therapy (Lantus 15 units subcutaneous daily and p.o. 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 DIAGNOSIS # Acute metabolic encephalopathy secondary to mixed HHS/DKA # Seizures next secondary to HHS # HHS # DKA vs starvation ketosis # EMILIANA vasomotor mediated # NSTEMI type II # Metabolic acidosis # Bilateral maxillary sinusitis # DM type 2 - controlled (ha1c 5.4) # HTN # Dyslipidemia # Non compliance # History of seizure secondary to alcohol abuse Goals of care discussed with patient for over 18 minutes: Full code status Discussed plan with Dr. Brennan, patient, family and nurses. Examination Patient lying in bed, in no acute distress General: Lucid, afebrile, mucosae are moist Cardiovascular: Normal S1 and S2. No murmurs, gallops or rubs Respiratory: Normal ventilation mechanics. Clear lung sounds on auscultation Abdomen: Soft, nontender, no organomegaly, normal bowel sounds MSK/skin: Mobilizes 4 limbs. Skin is dry and warm. right 5th toe amputation. Neurological: Oriented in 3 spheres. No motor no sensitive deficits. Pupils are isocoric and reactive Operations or Procedures CHEST RADIOGRAPH Indication: seizure hyperglycemia Technique: Single frontal view of the chest was obtained COMPARISON: CHEST PORTABLE on DOS: 02/22/21, CXRP on DOS: 02/22/21 FINDINGS: Lines and Tubes: None Lungs: Clear Pleura: No effusion. No pneumothorax. Cardiomediastinal contours: Unremarkable Bones: Unremarkable IMPRESSION: 1. No acute disease. ATED BY: MALU BREWER MD DICTATED DATE/TIME: 07/18/24 2237 ORDERING PHYSICIAN: JAMIL ONEAL MD PROCEDURE(s): HWOCT - HEAD WITHOUT CONTRAST REASON: seizure ORDER NUMBER(s): [id number], ACCESSION NUMBER(s): [id number] EXAM: CT HEAD WITHOUT CONTRAST INDICATION: seizure TECHNIQUE: CT of the head without intravenous contrast. Radiation Dose : 1. Head: CT Dose: CTDI volume is 64 mGy. Dose-length product is 1251 mGy*cm The dose indicators for CT are the volume Computed Tomography (CT) Dose Index (CTDIvol) and the Dose Length Product (DLP), and are measured in units of mGy and mGy-cm, respectively. These indicators are not patient dose, but values generated from the CT scanner acquisition factors. The report includes radiation exposure data for exposures received during this examination. COMPARISON: HEAD WITHOUT CONTRAST on DOS: 02/22/21 FINDINGS: There is no evidence of acute intracranial hemorrhage, extra-axial collection, mass effect, midline shift, herniation or hydrocephalus. The ventricles, sulci and cisterns are age appropriate. The choi-white differentiation is intact. Patchy periventricular and subcortical white matter hypoattenuation is nonspecific but may be related to small vessel ischemic disease. Mucosal thickening of the bilateral maxillary sinuses. The surrounding soft tissues and osseous structures are unremarkable. IMPRESSION: 1. No acute intracranial abnormality. 2. Bilateral maxillary sinusitis. Radiation optimization: All CT scans at this facility use at least one of these dose optimization techniques: automated exposure control mA and/or kV adjustment per patient size (includes targeted exams where dose is matched to clinical indication) or iterative reconstruction. ATED BY: MALU BREWER MD DICTATED DATE/TIME: 07/19/24 0115 Condition at Discharge: Good Final Diagnosis/Problems List # Acute metabolic encephalopathy secondary to mixed HHS/DKA # Seizures next secondary to HHS # HHS # DKA vs starvation ketosis # EMILIANA vasomotor mediated # NSTEMI type II # Metabolic acidosis # Bilateral maxillary sinusitis # DM type 2 - controlled (ha1c 5.4) # HTN # Dyslipidemia # Non compliance # History of seizure secondary to alcohol abuse Discharge Disposition: Home SNF Discharge Will this Physician continue t: No Discharge Instruct/Medications Diet: Consistent carbohydrate, Cardiac 2g Na,low cholest Activity: No Restrictions, As Tolerated Follow Up/Referral: PCP Tufting Supervisor Medications: Per EMR Discharge Statement: "Patient was advised to return to the ER or call 911 if any headaches, dizziness, shortness of breath, chest pain, abdominal pain, bleeding, fevers, or worsening of medical condition. Patient was counseled about treatment plan, medications, possible side effects, patientverbalized understanding. All questions were answered to the best of my ability. This discharge took greater then 30 minutes in planning, reviewing documentation, counseling the patient, and discussing with other team members." ASSESSMENT ASSESSMENT Assessment HHS/DKA Date of Service: Jul 20, 2024 Billing Provider: MONA BRENNAN MD Common Visit Codes: 37577-GYM/OBS DISCH DAY >30min GAYLE NORTH Jul 20, 2024 13:54 MONA BRENNAN MD Jul 24, 2024 16:03
--- NOTE | 2024-07-20 15:48 | DVHSR ---
APPROVED REPORT EXAM: Two-dimensional and M-mode echocardiogram with Doppler and color Doppler. Blood Pressure: 128/53 mmHg INDICATION Rule out CHF RISK FACTORS Height: 67, Weight: 170 DIMENSIONS LVDd4.0 (3.8-5.7cm)LA (2D)3.7 (1.9-4.0cm)Aortic Root4.2 (2.0-3.7cm) LVDs2.6 (2.5-4.0cm)LA (MM) (1.9-4.0cm)Aortic Cusp Exc1.5 (1.5-2.0cm) EF (%) 65.0 (55-70%)Rt. Atrium3.7 (1.9-4.0cm)Asc. Aorta cm IVSd1.3 (0.7-1.1cm)RV (D) (1.8-2.4cm) PWd1.3 (0.7-1.1cm) Mitral Valve MitralMitral Stenosis E wave0.65m/sMV Mean GR.mmHg A wave0.94m/sMV Peak GR.mmHg E/A ratio0.72D MVAcm2 DECEL [id number] 1/2 [id number] IVRTmsDop MVA2.50cm2 Aortic Valve Aortic ValveAortic Stenosis V11.15m/Shaka Mean GR.6mmHg V21.61m/Shaka Peak GR.10mmHg LVOT Diameter2.1 (1.8-2.4cm)Doppler AVA2.47cm2 AI P 1/2 Baxu428.75ms Pulmonic Valve V20.83m/s Tricuspid Valve TR Velocity2.28m/s [id number] Conclusion lvef 65% by visual estimate moderate LVH normal rv function left atrium enlarged mild no severe valve abnormalities noted
== END 2024-07-20 16:30 | disposition home or self-care (01) | DRG 420 ==
LOC: ER 21:46 → EDBD 21:46 → OVERFLOW 07-19 02:16 → TELE-CENTR 07-19 18:21
PROVIDERS: ADMIT Student in an Organized Health Care Education/Training Program; ATTEND Student in an Organized Health Care Education/Training Program
DX: E11.10 Type 2 diabetes mellitus with ketoacidosis without coma (principal); N17.0 Acute kidney failure with tubular necrosis; I21.4 Non-ST elevation (NSTEMI) myocardial infarction; R56.9 Unspecified convulsions; Z20.822 Contact with and (suspected) exposure to COVID-19; E78.00 Pure hypercholesterolemia, unspecified; I10 Essential (primary) hypertension; J32.0 Chronic maxillary sinusitis; Z83.3 Family history of diabetes mellitus; Z91.199 Patient's noncompliance with other medical treatment and regimen due to unspecified reason; Z79.4 Long term (current) use of insulin; Z79.899 Other long term (current) drug therapy
CPT/HCPCS: 36415; 36600; 70450; 71045; 80048; 80053; 80061; 80307; 80320; 80329; 81001; 82010; 82550; 82805; 82962; 83036; 83605; 83735; 83880; 83930; 84100; 84443; 84484; 85025; 87040; 87086; 87426; 87804; 93005; 93306; G0378; J1815; J2470; J3480